=== PATIENT | male | born 1985 | race Caucasian/White ===

== ENCOUNTER 2018-06-13 20:33 | Emergency (ER) | payer OTHER ==
[2018-06-13] MEDS ORDERED: LORazepam 2 MG/ML INJ IVP ONE (21:06)
[2018-06-13] MEDS ORDERED: NS 1,000 ML IV ONE (21:06)
[2018-06-13] MEDS ORDERED: chlordiazePOXIDE 25 MG CAP PO ONE (21:06)
[2018-06-13] MEDS ORDERED: ONDANSETRON 4 MG/2 ML VIAL IVP ONE ×2 (21:07→22:22)
[2018-06-13 21:28] LABS: PLATELET COUNT 134 10^3/uL (150-400)
[2018-06-13] MEDS ORDERED: CHLORDIAZEPOXIDE 25MG PREPK#6 BTL TAKEHOME ONE (22:11)
[2018-06-13] MEDS ORDERED: ONDANSETRON 4MG PREPACK#2 BTL TAKEHOME ONE (22:11)
--- NOTE | 2018-06-13 22:11 | EDPHY ---
H & P Stated Complaint: Hematemesis, from [facility], withdrawaling from Kratum/ETOH Time Seen by Provider: 06/13/18 21:00 HPI/ROS: Chief complaint: Vomiting with bright red blood History of present illness: This is a 32-year-old male who came from the [facility] after a a 2 episodes of vomiting with reported bright red blood in the vomit. Patient reports he is withdrawing from alcohol and kratom. His last drink was yesterday. States he feels nauseated. His stomach is upset. He feels shaky. Denies other associated signs or symptoms including no fevers, no diarrhea or constipation, no report of blood in his stools. Review of systems: A 10 point review of systems was obtained and other than described above was negative - Personal History Current Tetanus Diphtheria and Acellular Pertussis (TDAP): No - Medical/Surgical History Hx Asthma: No Hx Chronic Respiratory Disease: No Hx Diabetes: No Hx Cardiac Disease: No Hx Renal Disease: No Hx Cirrhosis: No Hx Alcoholism: Yes Hx HIV/AIDS: No Hx Splenectomy or Spleen Trauma: No Other PMH: ETOH withdrawal, "kratum withdrawal" - Social History Smoking Status: Current some day smoker - Physical Exam Exam: General Appearance: Alert, nontoxic, mildly tremulous. Eyes: Pupils equal and round no pallor or injection. ENT, Mouth: Mucous membranes moist. Respiratory: There are no retractions, lungs are clear to auscultation. Cardiovascular: Regular rate and rhythm. Gastrointestinal: Abdomen is soft and non tender, no masses, bowel sounds normal. Neurological: Alert and oriented x4. Strength and sensation intact and symmetrical. Skin: Warm and dry, no rashes. Musculoskeletal: Neck is supple non tender. Extremities are symmetrical, full range of motion. Psychiatric: Patient is oriented X 3, there is no agitation. Constitutional: Initial Vital Signs Temperature (C) 36.7 C 06/13/18 20:40 Heart Rate 82 06/13/18 20:40 Respiratory Rate 18 06/13/18 20:40 Blood Pressure 140/88 H 06/13/18 20:40 O2 Sat (%) 96 06/13/18 20:40 O2 Delivery Mode Room Air Allergies/Adverse Reactions: Penicillins Allergy (Verified 06/13/18 20:40) Medical Decision Making - Diagnostics Imaging Results: Imaging Impressions Chest X-Ray 06/13/18 21:06 Impression: No acute findings in the chest. Imaging: I viewed and interpreted images myself ED Course/Re-evaluation: Patient discussed with my secondary supervising physician Dr. Orville Lindsay. Patient presents to the emergency department reporting hematemesis. He is nontoxic. He has benign serial abdominal exams. Chest x-ray and blood studies unremarkable. He is symptomatically treated with improvement in symptoms. He did have 1 episode of vomiting in the emergency room that was nonbloody. After further treatment he is feeling much better, tolerating oral challenges. He will be discharged back to the adult [facility] with a packet of Zofran and Librium. Return precautions were given. Differential Diagnosis: Included but not limited to withdrawal, Shelli-Trpilett tear, upper GI bleed - Data Points Laboratory Results: Laboratory Results 06/13/18 20:30 06/13/18 20:30 06/13/18 06/13/18 06/13/18 20:30 20:30 20:30 WBC 6.73 10^3/uL 10^3/uL (3.80-9.50) RBC 4.89 10^6/uL 10^6/uL (4.40-6.38) Hgb 14.9 g/dL g/dL (13.7-17.5) Hct 40.8 % % (40.0-51.0) MCV 83.4 fL fL (81.5-99.8) MCH 30.5 pg pg (27.9-34.1) MCHC 36.5 g/dL g/dL (32.4-36.7) RDW 12.5 % % (11.5-15.2) Plt Count 134 10^3/uL L 10^3/uL (150-400) MPV 10.0 fL fL (8.7-11.7) Neut % (Auto) 82.6 % H % (39.3-74.2) Lymph % (Auto) 11.6 % L % (15.0-45.0) Vance % (Auto) 5.1 % % (4.5-13.0) Eos % (Auto) 0.0 % L % (0.6-7.6) Baso % (Auto) 0.3 % % (0.3-1.7) Nucleat RBC Rel Count 0.0 % % (0.0-0.2) Absolute Neuts (auto) 5.56 10^3/uL 10^3/uL (1.70-6.50) Absolute Lymphs (auto) 0.78 10^3/uL L 10^3/uL (1.00-3.00) Absolute Monos (auto) 0.34 10^3/uL 10^3/uL (0.30-0.80) Absolute Eos (auto) 0.00 10^3/uL L 10^3/uL (0.03-0.40) Absolute Basos (auto) 0.02 10^3/uL 10^3/uL (0.02-0.10) Absolute Nucleated RBC 0.00 10^3/uL 10^3/uL (0-0.01) Immature Gran % 0.4 % % (0.0-1.1) Immature Gran # 0.03 10^3/uL 10^3/uL (0.00-0.10) Sodium 135 mEq/L mEq/L (135-145) Potassium 3.8 mEq/L mEq/L (3.3-5.0) Chloride 100 mEq/L mEq/L (97-110) Carbon Dioxide 23 mEq/l mEq/l (22-31) Anion Gap 12 mEq/L mEq/L (8-16) BUN 10 mg/dL mg/dL (7-23) Creatinine 0.8 mg/dL mg/dL (0.7-1.3) Estimated GFR > 60 Glucose 74 mg/dL mg/dL (70-100) Calcium 9.1 mg/dL mg/dL (8.5-10.4) Total Bilirubin 1.2 mg/dL mg/dL (0.1-1.4) Conjugated Bilirubin 0.2 mg/dL mg/dL (0.0-0.5) Unconjugated Bilirubin 1.0 mg/dL mg/dL (0.0-1.1) AST 66 IU/L H IU/L (17-59) ALT 46 IU/L IU/L (21-72) Alkaline Phosphatase 98 IU/L IU/L (38-126) Total Protein 6.9 g/dL g/dL (6.3-8.2) Albumin 4.4 g/dL g/dL (3.5-5.0) Lipase 144 IU/L IU/L (23-300) Medications Given: Discontinued Medications Chlordiazepoxide (Librium 25 Mg Prepack#6) 1 btl TAKEHOME EDNOW ONE Stop: 06/13/18 22:12 Last Admin: 06/13/18 22:25 Dose: 1 btl Chlordiazepoxide HCl (Librium) 25 mg PO EDNOW ONE Stop: 06/13/18 21:07 Last Admin: 06/13/18 21:10 Dose: 25 mg Sodium Chloride (Ns) 1,000 mls @ 0 mls/hr IV EDNOW ONE; Wide Open PRN Reason: Protocol Stop: 06/13/18 21:07 Last Admin: 06/13/18 21:11 Dose: 1,000 mls Lorazepam (Ativan Injection) 1 mg IVP EDNOW ONE Stop: 06/13/18 21:07 Last Admin: 06/13/18 21:13 Dose: 1 mg Ondansetron HCl (Zofran) 4 mg IVP EDNOW ONE Stop: 06/13/18 21:08 Last Admin: 06/13/18 21:11 Dose: 4 mg Ondansetron HCl (Zofran Odt 4 Mg Prepack#2) 1 btl TAKEHOME EDNOW ONE Stop: 06/13/18 22:12 Last Admin: 06/13/18 22:25 Dose: 1 btl Ondansetron HCl (Zofran) 4 mg IVP EDNOW ONE Stop: 06/13/18 22:23 Last Admin: 06/13/18 22:25 Dose: 4 mg Departure - Departure Disposition: Home, Routine, Self-Care Clinical Impression: Alcohol withdrawal Qualifiers: Complication of substance-induced condition: uncomplicated Qualified Code(s): F10.230 - Alcohol dependence with withdrawal, uncomplicated Hematemesis Qualifiers: Nausea presence: with nausea Qualified Code(s): K92.0 - Hematemesis Condition: Good Instructions: Alcohol Withdrawal (ED) Additional Instructions: Follow-up with a primary care doctor for recheck If symptoms worsen or new symptoms develop return to the emergency room for recheck Referrals: NONE *PRIMARY CARE P,. [Primary Care Provider] - As per Instructions [facility],. [Clinic] - As per Instructions
[2018-06-14 00:45] VITALS: BP 126/88
== END 2018-06-14 01:10 | disposition home or self-care (01) ==
LOC: EDUNIT#
DX: K92.0 Hematemesis (principal); F10.230 Alcohol dependence with withdrawal, uncomplicated; E86.9 Volume depletion, unspecified; F17.200 Nicotine dependence, unspecified, uncomplicated
CPT/HCPCS: 96374; J2060; J2405